=== PATIENT | male | born 1940 | race Caucasian/White ===

== ENCOUNTER 2017-09-10 09:48 | Emergency (ER) | payer MEDICARE ==
[~2017-09-10] VITALS: Ht 190.5 cm; Wt 90.7 kg
[2017-09-10] MEDS ORDERED: ASPI-757 PO (09:54)
--- NOTE | 2017-09-10 10:24 | ER Report ---
History and Physical Time Seen By MD: 10:22 Hx. of Stated Complaint: CONCERNED FOR DVT IN LEFT LEG. C/O PAIN TO LATERAL LEFT KNEE THAT WORSENS WITH SITTING. NOTICED PAIN OVER THE LAST THREE WEEKS - PAIN FREE AT THIS TIME. HPI/ROS CHIEF COMPLAINT: Pain to right lower extremity HISTORY OF PRESENT ILLNESS: Patient is a 77-year-old male who presents to the emergency department with complaint of pain that is just lateral to the right knee. The pain has been episodic over the past 3 weeks and currently patient is symptom-free. Patient states that it seems to improve with movement and worsens with sitting. His primary concern is that she's had a DVT in the remote past in the opposite leg. He is concerned about the possibility of DVT. He offers no other symptoms at this time and denies chest pain or shortness of breath denies abdominal pain denies fevers or chills denies any recent traumatic injury. REVIEW OF SYSTEMS: Respiratory: No cough, no dyspnea. Cardiovascular: No chest pain, no palpitations. Gastrointestinal: No vomiting, no abdominal pain. Musculoskeletal: No back pain. Right lower extremity pain Allergies: Coded Allergies: Sulfa (Sulfonamide Antibiotics) (Verified Allergy, Severe, RASH , 09/10/17) Home Meds Reported Medications Aspirin (ASPIRIN) 325 Mg Tablet, 325 MG PO QDAY, TAB 09/10/17 Past Medical/Surgical History Prior history of hip fracture, history of DVT. Constitutional Vital Sign - Last 24 Hours 09/10/17 09:51 Temp 97.1 Pulse 88 Resp 18 B/P (MAP) 159/75 Pulse Ox 95 O2 Delivery Room Air Physical Exam General Appearance: The patient is alert, has no immediate need for airway protection and no current signs of toxicity. Eyes: Pupils equal and round no injection. Respiratory: Chest is non tender, lungs are clear to auscultation. Cardiac: regular rate and rhythm Gastrointestinal: Abdomen is soft and non tender, no masses, bowel sounds normal. Musculoskeletal: Neck: Neck is supple and non tender. Extremities have full range of motion and are non tender. No palpable cords are noted to the right lower extremity negative Homans sign Skin: No rashes or lesions. Medical Decision Making EKG/Imaging Imaging Bedside ultrasound negative for acute DVT ED Course/Re-evaluation ED Course 09/10/2017 10:23:41 am plan at this time will be right lower sternum a venous Doppler. My suspicion is the patient's symptoms are more musculoskeletal but with prior history of DVT we'll order an ultrasound. Decision to Disposition Date: Sep 10, 2017 Decision to Disposition Time: 11:51 Depart Departure Latest Vital Signs Vital Signs Date Time Temp Pulse Resp B/P (MAP) Pulse Ox O2 Delivery O2 Flow Rate FiO2 09/10/17 09:51 97.1 88 18 159/75 95 Room Air Impression: Primary Impression: Leg pain Condition: Improved Disposition: HOME OR SELF-CARE Referrals: SANCHO RAMIREZ (PCP) Follow-up routinely Patient Instructions: Leg Pain (ED) Problem Qualifiers Primary Impression: Leg pain Laterality: right Qualified Codes: M79.604 - Pain in right leg CHUCK FONSECA MD Sep 10, 2017 10:24
[2017-09-10 11:30] VITALS: BP 133/90
--- NOTE | 2017-09-10 11:59 | RADIOLOGY IMAGING REPORT ---
FACILITY: [facility] - [place] PATIENT NAME: Steve Virgen : 1940 MR: [id number] V: [id number] EXAM DATE: ORDERING PHYSICIAN: CHUCK FONSECA TECHNOLOGIST: Location: [facility] - [place] Patient: Steve Virgen : 1940 Visit/Account:[id number] Date of Sevice: 09/10/2017 Venous Doppler ultrasound right lower extremity Indication: Right leg pain. History of left leg DVT. Comparison: None Available Findings: Duplex Doppler and color flow imaging was performed. The common femoral, femoral, and popl iteal veins are all patent and compressible with normal Doppler wave forms. There are normal respons es to augmentation. The posterior tibial and peroneal veins are patent in the calf. The proximal greater saphenous vein i s also normal. IMPRESSION: 1. No evidence of deep venous thrombosis of the right lower extremity. Report Dictated By: Hans Barnett at 09/10/2017 11:52 AM Report E-Signed By: Hans Barnett at 09/10/2017 11:55 AM WSN:[id number]
== END 2017-09-10 12:08 | disposition home or self-care (01) ==
LOC: ER 09:53
DX: M79.604 Pain in right leg (principal)
CPT/HCPCS: 99282